=== PATIENT | female | born 1960 | race Caucasian/White ===

== ENCOUNTER → 2021-04-29 07:18 | Outpatient (CLI) | payer BC, SELFPAY ==
--- NOTE | ~2021-04-29 | MR_ITS ---
EXAMINATION: MR knee RT wo con DATE: 04/29/2021 07:55 INDICATION: Generalized right knee pain. Meniscal tear. TECHNIQUE: Magnetic resonance imaging (MRI) of the right knee was performed without intravenous contr ast. Sequences included coronal PD-weighted FSE, coronal PD-weighted FS FSE, sagittal T2-weighted FS E, sagittal PD-weighted FS FSE and axial PD weighted fat saturated FSE. COMPARISON: None. FINDINGS: Medial compartment: Medial extrusion of the medial meniscal body with complex tear extending from the anterior to the pos terior horn. There is full/near full-thickness chondral ulceration along the anterior to central weig htbearing medial femoral condyle and at the anterior half the medial tibial plateau with mild subarti cular edema at the latter. Large marginal ossified along the posterior aspect of the medial tibial pl [place]. Lateral compartment: Lateral meniscus is normal. Partial-thickness cartilage loss along the lateral margin of the posterio r weightbearing femoral condyle which appears to reach full-thickness at the posterior medial most ma rgin where there is a moderate size marginal osteophytes which extends across the region of cartilage loss. Patellofemoral compartment: Diffuse partial thickness cartilage loss at the patella and trochlea. This reaches full/near full-thi ckness at the significant portion of the caudal half of the apical ridge and medial facet. Deep fissu ring with minimal underlying subarticular edema at the caudal aspect of the lateral facet. Additional deep chondral ulceration and fissuring along the inferior aspect of the medial trochlea. Small to mo derate size marginal osteophytes are present. Ligaments and tendons: Posterior cruciate ligament is normal. The anterior cruciate ligament demonstrates a normal angle rel ative to Blumenstaat's line. There is however increased intrasubstance signal extending along intact appearing linear fibers with a celery stalk appearance consistent with mucoid degeneration without discrete tear. The fibular collateral ligament complex is normal. Mild linear increased intrasubstanc e signal along the proximal medial collateral ligament with small amount of fluid along its deep and superficial margins consistent with mild partial tear/moderate grade sprain which given the lack of s ignificant surrounding edema is likely chronic. The extensor mechanism is normal. The visualized medi al and lateral hamstring tendons as well as the iliotibial band are normal. Fluid: Small to moderate-sized right knee joint effusion with moderate synovitis at the suprapatellar pouch. Small low signal intensity loose osteochondral body within a recess posterior to the previously note d large marginal osteophyte at the posterolateral aspect of the medial tibial plateau. Small Camejo's cyst. Osseous/other: Normal marrow signal aside from the previous noted small foci of mild subarticular edema. No fracture or pathologic marrow replacing process. IMPRESSION: 1. Complex medial meniscal tear with medial extrusion of the meniscal body. 2. Tricompartmental osteoarthritis, severe with extensive high-grade chondral malacia in the medial c ompartment, moderate with additional extensive moderate and high-grade chondral malacia in the patell ofemoral compartment and mild in the lateral compartment. 3. Likely chronic sprain/mild partial tear at the proximal medial collateral ligament. 4. Mucoid degeneration without definitive tear of the anterior cruciate ligament. Correlate with phys ical exam to assess for degree of functional integrity. 5. Moderate sized right knee joint effusion with small Camejo's cyst. Reviewed, dictated and finalized at location A.
== END ==
DX: M25.561 Pain in right knee (principal); S83.231A Complex tear of medial meniscus, current injury, right knee, initial encounter; M17.11 Unilateral primary osteoarthritis, right knee; M94.261 Chondromalacia, right knee; S83.411A Sprain of medial collateral ligament of right knee, initial encounter; M25.461 Effusion, right knee; M71.21 Synovial cyst of popliteal space [Baker], right knee
CPT/HCPCS: 73721

== ENCOUNTER 2023-01-29 02:00 | Day surgery (SDC) | payer BC, SELFPAY ==
[2023-01-21 14:26] VITALS: BMI 33.2
--- NOTE | 2023-01-28 09:48 | P.PNAN_ITS ---
Anes - Initial Pre Proc Eval Procedure: Operation Date: 01/29/23 12:30 Proposed Procedures p Screening Colonoscopy - Inderjit Mahoney MD Date/Time: 01/28/23 09:48 Surgeon: Inderjit Mahoney MD Pre Op Diagnosis: neoplasm screening Patient Data Age: 63 Gender: F Height: 1.65 m Weight: 90.5 kg Allergies Allergy/AdvReac Type Severity Reaction Status Date / Time Latex, Natural Rubber Allergy Mild RASH FROM Verified 01/21/23 14:27 BANDAIDS Home Medications Medication Instructions Recorded Confirmed Type ezetimibe 10 mg tablet (Zetia) 10 mg PO DAILY #90 tabs 03/30/22 01/21/23 Rx sertraline 100 mg tablet 100 mg PO DAILY #90 tabs 03/30/22 01/21/23 Rx cholecalciferol (vitamin D3) 25 25 mcg PO DAILY 01/21/23 01/21/23 History mcg (1,000 unit) tablet (Vitamin D3) dapagliflozin 10 mg tablet 10 mg PO DAILY 01/21/23 01/21/23 History (Farxiga) rosuvastatin 40 mg tablet 40 mg PO DAILY 01/21/23 01/21/23 History trazodone 50 mg tablet 50 mg PO .QHS PRN Insomnia 01/21/23 01/21/23 History sodium,potassium,mag sulfates 17.5 01/29/23 History gram-3.13 gram-1.6 gram oral soln Patient hx anesthesia problems: none Family hx anesthesia problems: none Results Review: All pre-operative results and documents have been reviewed as part of the pre- operative evaluation. [facility] Past Medical History Medical History (Updated 01/28/23 @ 09:48 by Elie Gay DO) Allergies Anxiety Diabetes mellitus GERD (gastroesophageal reflux disease) Hyperlipidemia Surgical History Surgical History H/O arthroscopic knee surgery 1986 H/O gastric bypass H/O total hysterectomy 2001 Family History Family History Father Hypertension Carcinoma of colon Mother Family history of kidney disease Social History Social History Smoking status: Former smoker Smoking end date: 10/04/98 Alcohol intake: never Substance use type: does not use Living arrangements: alone Spiritual care concerns: No Anes - Eval Final PreProcedure Day of Procedure 01/28/23 09:48 Patient weight: obese Heart: regular rate and rhythm Lungs: clear to auscultation Airway: Mallampati scale class II Neurological: alert and oriented Last oral intake: >/= 8 hours ASA classification: III Emergent: no Anesthetic plan: proceed Anesthesia type and monitoring: general GIVS and standard monitoring Results Review: All pre-operative results and documents have been reviewed as part of the pre- operative evaluation. Informed Consent: The patient's anesthetic plan and its attendant risks and benefits were discussed with the patient/family/POA. Questions were solicited and answers provided to the satisfaction of the patient/family/POA.
[2023-01-29 08:46] VITALS: BP 126/71; PULSE 84; RESP 18; TEMP 36.4; O2SAT 99; BMI 33.0
[2023-01-29 09:02] LABS: Glucose Point of Care 142 mg/dl (65-105)
[2023-01-29] MEDS: LACTATED RINGERS 1,000 ML 150 ML IV CONT (09:14)
--- NOTE | 2023-01-29 09:25 | PM.HPGS ---
History of Present Illness History of Present Illness Consent: Risks, benefits, and alternatives have been discussed and questions answered. Patient agrees to proceed with procedure. Chief complaint: neoplasm screening Narrative: Jessica Lira is a 63 year old female Presents for screening colonoscopy. Patient's current weight appetite bowel movements are normal. She denies abdominal pain. Patient has had no bleeding. . Patient does have a prior history of colon polyp removed from the colon several years ago. Family history is significant that her mother had colon polyps. Review of Systems Review of Systems: Review of systems noncontributory. [facility] Past Medical History Medical History (Updated 01/29/23 @ 09:27 by Inderjit Mahoney MD) Allergies Anxiety Diabetes mellitus GERD (gastroesophageal reflux disease) Hyperlipidemia Surgical History Surgical History H/O arthroscopic knee surgery 1986 H/O gastric bypass H/O total hysterectomy 2001 Family History Family History Father Hypertension Carcinoma of colon Mother Family history of kidney disease Social History Social History Smoking status: Former smoker Smoking end date: 10/04/98 Alcohol intake: never Substance use type: does not use Living arrangements: alone Spiritual care concerns: No Meds Home Medications and Allergies Home Medications Medication Instructions Recorded Confirmed Type ezetimibe 10 mg tablet (Zetia) 10 mg PO DAILY #90 tabs 03/30/22 01/21/23 Rx sertraline 100 mg tablet 100 mg PO DAILY #90 tabs 03/30/22 01/21/23 Rx cholecalciferol (vitamin D3) 25 25 mcg PO DAILY 01/21/23 01/21/23 History mcg (1,000 unit) tablet (Vitamin D3) dapagliflozin 10 mg tablet 10 mg PO DAILY 01/21/23 01/21/23 History (Farxiga) rosuvastatin 40 mg tablet 40 mg PO DAILY 01/21/23 01/21/23 History trazodone 50 mg tablet 50 mg PO .QHS PRN Insomnia 01/21/23 01/21/23 History sodium,potassium,mag sulfates 17.5 01/29/23 History gram-3.13 gram-1.6 gram oral soln Allergies Allergy/AdvReac Type Severity Reaction Status Date / Time Latex, Natural Rubber Allergy Mild RASH FROM Verified 01/21/23 14:27 BANDAIDS Vital Signs Vital Signs - 24 hr 01/29/23 08:46 Temperature 97.6 F Pulse Rate 84 Respiratory Rate 18 Blood Pressure 126/71 Pulse Oximetry 99 Oxygen Delivery Room Air Exam Narrative: Physical exam reveals patient to be alert. Vital signs stable. HEENT exam is unremarkable. Patient is anicteric. Lungs are clear to auscultation and percussion. Heart is without murmur or extra sounds. Abdomen bowel sounds are present soft nontender with no hepatosplenomegaly. Digital external rectal exam is normal. Assessment and Plan Assessment and plan (1) History of colon polyps: Code(s): Z86.010 - Personal history of colonic polyps Status: Acute Assessment and Plan: Patient presents for screening colonoscopy. She does have a prior history of colon polyps as well as a family history of colon polyps. Anticipate follow-up surveillance colonoscopy at 5 year intervals. (2) Family history of colonic polyps: Code(s): Z83.71 - Family history of colonic polyps Status: Acute
[2023-01-29] MEDS: SIMETHICONE ORAL SUSPENSION 20 MG/0.3 ML 30 ML BOTTLE 0.6 ML IRRIGATION (10:07)
[2023-01-29 10:20] VITALS: BP 116/72; PULSE 76; RESP 20; O2SAT 100
[2023-01-29 10:30] VITALS: BP 126/71; PULSE 89; RESP 19; O2SAT 100
[2023-01-29 10:40] VITALS: BP 110/71; PULSE 72; RESP 16; O2SAT 100
== END 2023-01-29 10:48 | disposition home or self-care (01) ==
PROVIDERS: Visit Provider Internal Medicine Gastroenterology
PROC: 0DJD8ZZ Inspection of Lower Intestinal Tract, Via Natural or Artificial Opening Endoscopic (ICD-10-PCS; CPT 45378; principal; 2023-01-29 10:15)
DX: Z12.11 Encounter for screening for malignant neoplasm of colon (principal); D12.2 Benign neoplasm of ascending colon; K64.8 Other hemorrhoids; E11.9 Type 2 diabetes mellitus without complications; E78.5 Hyperlipidemia, unspecified; K21.9 Gastro-esophageal reflux disease without esophagitis; F41.9 Anxiety disorder, unspecified; Z83.71 Family history of colonic polyps; Z87.891 Personal history of nicotine dependence
CPT/HCPCS: 45385; 82948; 88305; J2001; J2704; J7120